=== PATIENT | female | born 1955 | race Caucasian/White ===

== ENCOUNTER 2016-08-21 19:11 | Emergency (ER) | payer OTHER ==
[~2016-08-21] VITALS: Ht 167.6 cm; Wt 70.5 kg
[2016-08-21] MEDS ORDERED: FLEXERIL10 MG PO (21:32)
[2016-08-21] MEDS ORDERED: MOTRIN800 MG PO (21:32)
[2016-08-21] MEDS ORDERED: ULTRAM50 MG PO (21:32)
[2016-08-21 22:02] VITALS: BP 123/82
== END 2016-08-21 22:03 | disposition home or self-care (01) ==
LOC: EME 19:11
PROC: 3E0234Z Introduction of Serum, Toxoid and Vaccine into Muscle, Percutaneous Approach (ICD-10-PCS; principal; 2016-08-21)
DX: S20.312A Abrasion of left front wall of thorax, initial encounter (principal); S00.03XA Contusion of scalp, initial encounter; W18.39XA Other fall on same level, initial encounter; R73.03 Prediabetes; Z79.82 Long term (current) use of aspirin; Z23 Encounter for immunization
CPT/HCPCS: 71101; 99281; 99283